=== PATIENT | female | born 1950 | race Caucasian/White ===

== ENCOUNTER 2025-02-15 18:32 | Emergency (ER) | payer MEDICAID, SELFPAY ==
--- NOTE | 2025-02-15 18:43 | XR_ITS ---
Examination: Left ankle 2 views TECHNIQUE: AP lateral left ankle 2 views Date and time: February 15, 2025 1902 hours INDICATIONS: Patient fell today with injury to the ankle, ankle pain. FINDINGS: Severe comminuted fractures distal tibia and distal fibula The distal tibial fracture extends to the distal articulating surface of the tibia with at least 8 mm displacement of the anterior distal tibial fragment on the lateral view The fibular shaft fracture is angulated and displaced one shaft width IMPRESSION: Severely comminuted fractures distal tibia and fibula
--- NOTE | 2025-02-15 18:43 | XR_ITS ---
Examination: Foot, left 3 views Technique: AP, oblique, lateral views foot, 3 views Date and time of exam: February 15, 2025 1900 hours INDICATIONS: Patient fell today with injury to foot, foot pain. FINDINGS: Nonstandard views, secondary to the ankle fractures Tarsal bones metatarsals and digits appear intact IMPRESSION: Limited study, no acute foot fractures, please see the ankle report
[2025-02-15 18:50] VITALS: PULSE 92; RESP 20; O2SAT 95
[2025-02-15 18:54] VITALS: BMI 41.6
[2025-02-15 18:56] VITALS: BP 147/48; PULSE 95; RESP 14; TEMP 36.9
--- NOTE | 2025-02-15 19:07 | EDNOTE_ITS ---
ED Fall Injury RME/HPI General Chief Complaint: Fall Stated Complaint: FALL Time Seen by Provider: 02/15/25 18:43 Arrival date/time: 02/15/25 18:32 Limitations: no limitations RME / HPI RME / HPI Narrative: 74-year-old female with a history of dementia, hyperlipidemia and hypertension is here today with injuries associated to her falls. She states she had a ground-level, mechanical fall, this morning and struck her left forehead. She denies any loss conscious, nausea, or vomiting. No vision changes. No neck pain. Just prior to arrival, she had a secondary fall and twisted her left ankle. This happened at approximately 6:00 p.m. She is brought in by EMS for this as she was nonweightbearing. Patient foot is angulated to the left. She has no open injury. Related Data Home Medications ?Medication ?Instructions ?Recorded ?Confirmed lisinopril 40 mg tablet 20 mg PO QDAY High Blood Pre ssure 02/08/10 03/30/24 ##0 oxycodone 80 mg tablet,crush 20 mg PO QID ##0 08/11/14 03/30/24 resistant,extended release 12 hr (OxyContin) Held on 03/30/24. Instructions: Resume on 03/31/24. docusate sodium 100 mg tablet 100 mg PO QDAY PRN Const ipation 03/09/21 03/30/24 donepezil 10 mg tablet 10 mg PO QDAY 03/09/2103/30 famotidine 20 mg tablet 20 mg PO QDAY 03/09/2103/30 furosemide 20 mg tablet 20 mg PO EVERYOTHERDAY 03/0903/30/24 memantine 10 mg tablet 10 mg PO BID 03/09/21 morphine 15 mg tablet,extended 15 mg PO HS 03/09/21 release Held on 03/30/24. Instructions: Resume on 03/31/24. Allergies Allergy/AdvReac Type Severity Reaction Status Date / Time Penicillins Allergy Severe Anaphylaxis Verified 02/15/25 18:55 codeine AdvReac Severe Itching Verified 02/15/25 18:55 Review of Systems Review of Systems Systems Reviewed: All systems reviewed, normal except as documented ED Exam General Limitations: Present no limitations General appearance: Present alert and in no apparent distress Head Head exam: Present atraumatic and other (No scalp depression or deformity. No raccoon sign or Velarde sign) Eye Eye exam: Present normal appearance, PERRL and EOMI ENT ENT exam: Present normal exam, normal oropharynx and mucous membranes moist Neck Neck exam: Present normal inspection, full ROM and trachea midline; Absent tenderness Chest Chest inspection: Present normal inspection and symmetric chest wall rise Respiratory Respiratory exam: Present normal lung sounds bilaterally Cardiovascular Cardiovascular exam: Present regular rate, normal rhythm and normal heart sounds Abdominal Exam Abdominal exam: Present soft and normal bowel sounds Extremities Exam Extremities exam: Present normal inspection and full ROM Back Exam Back exam: Present normal inspection and full ROM Neurological Exam Neurological exam: Present alert, oriented X3 and CN II-XII intact Psychiatric Psychiatric exam: Present normal affect and normal mood Skin Skin exam: Present warm, dry, intact and normal color Course Course Course Narrative: At approximately 1900, Dr Acuna with orthopedics was contacted and case was discussed. Dr Acuna will see the patient in the ER. We will have a Doppler, suture cart, and lidocaine at bedside for Dr Acuna. Patient was seen at bedside by orthopedics, close reduction was performed, audible posterior tibial pulse was obtained using a Doppler, and repeat films we re obtained. Dr. Combs at [facility] in [place], [place] with podiatry was contacted. Case were discussed. Patient was presented with options and would like to be transferred to their facility where they can provide definitive treatment. Dr. Combs will except, we will have to perform a ED to ED transfer. Quality Measures none Orders Category Date Time Status Jc [Urinary Catheter] QS Care 02/15/25 20:17 Active Jc to Leg Bag Routine Care 02/15/25 19:58 Ordered Transfer to another facility [Transfer/Discharge] Stat Discharge 02/15/25 19:59 Active XR ankle LT 2V Stat Exams 02/15/25 18:43 Completed XR ankle comp LT min 3V Stat Exams 02/15/25 19:35 Completed XR foot comp LT min 3V Stat Exams 02/15/25 18:43 Completed XR knee LT 3V Stat Exams 02/15/25 19:35 Completed CBC Stat Lab 02/15/25 20:48 Completed CMP [Comprehensive Metabolic Panel] Stat Lab 02/15/25 20:48 Completed Lidocaine 1% 20 ml [Xylocaine 1% 20 ML] Med 02/15/25 19:11 Discontinued 30 ml INFL X1 ONE Morphine Inj Med 02/15/25 18:43 Discontinued 4 mg IVP X1 ONE Vital Signs Vital signs: Vital Signs Temperature 98.4 F 02/15/25 18:56 Pulse Rate 95 02/15/25 18:56 Respiratory Rate 14 02/15/25 18:56 Blood Pressure 147/48 H 02/15/25 18:56 Oxygen Delivery Method Room Air 02/15/25 18:56 Fall MDM Narrative MDM Narrative:: 74-year-old female with a history of dementia, hyperlipidemia and hypertension is here today with injuries associated to her falls. She states she had a ground-level, mechanical fall, this morning and struck her left forehead. She denies any loss conscious, nausea, or vomiting. No vision changes. No neck pain. Just prior to arrival, she had a secondary fall and twisted her left ankle. This happened at approximately 6:00 p.m. She is brought in by EMS for this as she was nonweightbearing. Patient foot is angulated to the left. She has no open injury. On exam, patient was in moderate distress. She had angulation of the left foot. There were no open wounds. No palpable pulses were appreciated, capillary refill was brisk and the toes were slightly cool when compared to the left. Patient had +2 pulses in the right foot. Orthopedics was contacted, reduction was performed and audible pulses were appreciated using the Doppler. Splint was placed by orthopedics. We will transfer the patient to higher level care. Patient data External records reviewed:: EMS form Clinical information provided by:: patient and EMS Social determinants that could affect healthcare access:: none Patient has the following chronic illnesses:: Hypertension, hyperlipidemia How is presenting disease/condition affected by chronic disease/condition?: un effected by Evaluation data The following diagnostics were reviewed and interpreted by me:: lab results and radiology exam(s) Lab and/or radiology exams considered but not ordered:: n/a Interpretation Summary: Comminuted distal tibial and fibula fractures Medications / Prescriptions Medications or Prescriptions considered but not ordered:: n/a Medication administrations:: Medication Administration History Discontinued Medications Lidocaine HCl (Lidocaine Hcl 1% 20 Ml Vial) 30 ml INFL X1 ONE Stop: 02/15/25 19:12 Last Admin: 02/15/25 19:17 Dose: 30 ml Documented By: LEBRON Comments: MEDICATION GIVEN TO RAMIRO LANDRY Morphine Sulfate (Morphine Sulf Inj 10 Mg/Ml Vial) 4 mg IVP X1 ONE Stop: 02/15/25 18:44 Last Admin: 02/15/25 19:17 Dose: 4 mg Documented By: LEBRON See above Consultations Consultation(s) initiated? (list below): Yes Diagnosis Fall Differential Diagnosis: fracture of wrist, compression fracture and concussion with loss of consciousness Most likely diagnosis given after review of the tests above:: Coming fractures of the distal tibia and fibula Admission Indicated Admission indicated?: indicated Admission Request Was there a request for admission?: Yes Admission Attestation Admission request attestation: Discussed case with [] from Hospitalist service regarding admission. Discussed patients ED course, exam findings, labs, and radiology results. The Hospitalist [agrees,declines] to accept the patient for admission. Disposition Plan Disposition Plan: Transfer Discharge Plan Plan Patient Disposition: [facility] Facility Pt Being Transferred to: [facility] Service Needed for Transfer: Podiatry Patient condition on transfer: Stable Prescriptions/Referrals Prescriptions/Med Rec: No Action lisinopril 40 MG tablet 20 mg PO QDAY Qty: 0 oxycodone [OxyContin] 80 MG tablet extended release 12hr 20 mg PO QID Qty: 0 famotidine 20 mg tablet 20 mg PO QDAY morphine 15 mg tablet extended release 15 mg PO HS Patient Comments: TAKE ONE TABLET BY MOUTH EVERY DAY AT BED TIME docusate sodium 100 mg Tablet 100 mg PO QDAY PRN (Reason: Constipation) memantine 10 mg Tablet 10 mg PO BID donepezil 10 mg Tablet 10 mg PO QDAY furosemide 20 mg Tablet 20 mg PO EVERYOTHERDAY Problem List Clinical Impression: Ankle fracture, left, Closed fracture of tibial plafond with fibula involvement Patient/Caregiver Discharge Instructions Print Language: Northern Irish Stand Alone Forms: [employer] Award Info., Patient Portal Info Letter
[2025-02-15] MEDS: MORPHINE SULF INJ 10 MG/ML VIAL 4 MG IVP ×2 (19:17→23:44)
[2025-02-15] MEDS: LIDOCAINE HCL 1% 20 ML VIAL 30 ML INFL (19:17)
--- NOTE | 2025-02-15 19:35 | XR_ITS ---
Examination: Knee, left , 3 views Technique: Knee AP, lateral, oblique 3 views Date and time of exam: February 15, 2025 1954 hours INDICATIONS: Patient fell today with injury to the knee, knee pain. FINDINGS: Total left knee arthroplasty. Satisfactory alignment. No acute fracture IMPRESSION: No acute fracture
--- NOTE | 2025-02-15 19:35 | XR_ITS ---
EXAMINATION: Ankle, left 3 views Technique: Ankle AP, oblique, lateral 3 views Date and time of exam: February 15, 2025 195 hours INDICATIONS: Postreduction ankle fractures FINDINGS: No significant change in alignment severely comminuted fractures distal tibia and distal fibular shaft, in particular on the lateral view there is the displaced anterior intra-articular fracture fragment off the distal tibia No ankle dislocation IMPRESSION: No significant change in alignment severely comminuted fractures distal tibia and distal fibula
--- NOTE | 2025-02-15 19:47 | PC.NURSE ---
DR. THOMAS AT BEDSIDE APPLYING SPLINT.
--- NOTE | 2025-02-15 20:12 | PD.ORTHCON ---
HPI Consult details Reason for consultation narrative: Pain left ankle History of present illness: Patient is a 74-year-old who was walking and felt a sudden pop in her left ankle. She does not describe a twist she does not describe a fall other than an earlier in the day she fell hit her head on the mailbox. She was not complaining of any extremity pain at that time according to the patient. Pain localized just to distal left leg left ankle Past Medical History Past Medical History NEUROLOGIC: Negative Neurological Disorders or Seizures CARDIAC: Positive Cardiac Disorders, Hypercholesterolemia and Hypertension; Negative Congestive Heart Failure RESPIRATORY: Positive Chronic Obstructive Pulmonary Disease (COPD); Negative Asthma GASTROINTESTINAL: Positive Gastrointestinal Disorders, Hepatitis and Gastroesophageal Reflux Disease GENITOURINARY: Negative Genitourinary Disorders or Renal Disease REPRODUCTIVE: Negative Pelvic Inflammatory Disease MUSCULOSKELETAL: Positive Musculoskeletal Disorders, Arthritis and Fractures ENDOCRINE: Negative Endocrine Disorders, Diabetes Mellitus Type 1 or Diabetes Mellitus Type 2 HEMATOLOGIC: Negative Blood Disorders or Sickle Cell Disease PSYCHO/SOCIAL: Positive Depression OTHER HISTORY: Positive Chicken Pox, Measles, Mumps and Cervical Cancer; Negative Blood Transfusions, Blood Transfusion Reaction, Anesthesia Reactions, MRSA, VRSA, Vancomycin-Resistant Enterococci, Clostridium Difficile or Cancer Family History FAMILY HISTORY: Positive Family Cardiac Disorders and Family Cancer (PT'S DAD) Surgical History SURGICAL: Positive Joint Replacement and Tubal Ligation (TUBAL - 1 TUBE REMOVED) Social History SMOKING STATUS: Former smoker SECOND HAND EXPOSURE: No Meds Home Medications and Allergies Home Medications ?Medication ?Instructions ?Recorded ?Confirmed ?Type lisinopril 40 mg tablet 20 mg PO QDAY High Blood Pressure 02/08/10 03/30/24 History ##0 oxycodone 80 mg tablet,crush 20 mg PO QID ##0 08/11/14 03/30/24 History resistant,extended release 12 hr (OxyContin) Held on 03/30/24. Instructions: Resume on 03/31/24. docusate sodium 100 mg tablet 100 mg PO QDAY PRN Constipation 03/09/21 03/30/24 History donepezil 10 mg tablet 10 mg PO QDAY 03/09/21 03/30/24 History famotidine 20 mg tablet 20 mg PO QDAY 03/09/21 03/30/24 History furosemide 20 mg tablet 20 mg PO EVERYOTHERDAY 03/09/21 03/30/24 History memantine 10 mg tablet 10 mg PO BID 03/09/21 03/30/24 History morphine 15 mg tablet,extended 15 mg PO HS 03/09/21 03/30/24 History release Held on 03/30/24. Instructions: Resume on 03/31/24. Allergies Allergy/AdvReac Type Severity Reaction Status Date / Time Penicillins Allergy Severe Anaphylaxis Verified 02/15/25 18:55 codeine AdvReac Severe Itching Verified 02/15/25 18:55 Exam Vital Signs Temp Pulse Resp BP O2 Del Method 98.4 F 95 14 147/48 H Room Air 02/15/25 18:56 02/15/25 18:56 02/15/25 18:56 02/15/25 18:56 02/15/25 18:56 Blood pressure 147/48, pulse 95 Narrative Exam Patient is alert oriented very nice lady who is complaining of pain in the left leg left ankle. No other complaints. Turns head [id number] moves shoulders elbows wrist hands and fingers No complaint of any pain chest abdomen Patient examination of the left lower extremity shows that she is short and angulated. Able to flex and extend toes. Does have some degree of numbness but not extreme. Interestingly not a lot of swelling at this point in time. Unable to get pulse with Doppler. Some of it is due to the fact that the patient is very uncomfortable. The ankle was manipulated and a good posterior tibial pulse was palpable and she had good active flexion extension of her toes felt much better after manipulation Assessment & Plan Additional Assessment Additional comments: Patient was seen. Obvious deformity left leg. Hematoma block carried out close manipulation was then done and a posterior molded splint with stirrup applied. Better alignment. She does have a very significant distal tibia and fibular fracture plafond type fortunately the talus is under the tibia Plan Very complex injury. Needs tertiary care setting. It is going to be very difficult operation. Fortunately right now she does not have any significant swelling
--- NOTE | 2025-02-15 20:18 | ESOP_ITS ---
Pre Op Diagnosis Angulated displaced distal left tibia fracture and fibular fracture with intra- articular component being present tibia representing a plafond type of fracture Post Op Diagnosis Same Procedure Close manipulation distal tibia and fibular fracture left lower extremity plafond type Findings Distal tibia fracture with extension into ankle joint plafond type with significant comminution. Injury is closed Distal fibular fracture with angulation and shortening left lower extremity. Comminuted and closed Procedure Description Patient was seen in the emergency room. Initially we could not get pulses. I did a hematoma block with 3 cc fibula 7 cc distal tibia using 22-gauge needle hematoma aspirated and injected. Much more comfortable. Fracture manipulated and a posterior molded splint with side stirrup applied. After the manipulation and before application of splint she had a good posterior tibial pulse and felt much more comfortable Anesthesia other Drains None Implants None Pathology / specimen Pathology comment: None IVF Infused 0 Estimated Blood Loss 0 Condition Stable Disposition other (She needs transfer to tertiary center complex intra-articular distal tibia fracture plafond type and fibula fracture) Surgeon Renato Acuna MD Additional Comment Transfer higher level of care
[2025-02-15 21:09] VITALS: BP 154/55; PULSE 70; RESP 17; TEMP 36.8; O2SAT 95
[2025-02-15 21:30] LABS: Basophils # (Auto) 0.0 Thou/mm3 (0.0-0.2); Basophils % (Auto) 0 % (0-2.5); Eosinophils # (Auto) 0.0 Thou/mm3 (0.0-0.5); Eosinophils % (Auto) 0 % (0-10); Hematocrit 42.2 % (36.0-46.0); Hemoglobin 13.6 g/dL (12.0-16.0); Immature Granulocytes Auto 0.03 Thou/mm3 (0.00-0.00); Lymphocytes # (Auto) 1.5 Thou/mm3 (1.0-4.8); Lymphocytes % (Auto) 13 % (10-50); Mean Corpuscular HGB Conc 32.2 g/dl (31.0-37.0); Mean Corpuscular Hemoglobin 29.2 pg (25.0-35.0); Mean Corpuscular Volume 91 fL (80-100); Monocytes # (Auto) 0.9 Thou/mm3 (0.0-0.8); Monocytes % (Auto) 7 % (0-12); Neutrophils # (Auto) 9.2 Thou/mm3 (1.8-7.7); Neutrophils % (Auto) 79 % (37-80); Nucleated Red Blood Cell # 0.00 Thou/mm3 (0.00-0.00); Nucleated Red Blood Cell % 0 /100 WBC (0); Platelet Count 181 Thou/mm3 (140-440); RDW Standard Deviation 44.1 fL (36.4-46.3); Red Blood Count 4.66 Miln/mm3 (4.00-5.20); White Blood Count 11.6 Thou/mm3 (3.6-11.0)
[2025-02-15 21:48] LABS: Alanine Aminotransferase 32 U/L (10-49); Albumin, Serum 4.3 gm/dL (3.4-4.8); Albumin/Globulin Ratio 1.7 (1.2-2.2); Alkaline Phosphatase 62 U/L (46-116); Anion Gap 12 (7-16); Aspartate Amino Transferase 50 U/L (0-34); BUN/Creatinine Ratio 13 Ratio (12-20); Bilirubin,Total 0.4 mg/dL (0.3-1.2); Blood Urea Nitrogen 37 mg/dL (9-23); Calcium 9.8 mg/dL (8.3-10.6); Calcium (Corrected) 9.8 mg/dL (8.5-10.1); Carbon Dioxide 21.9 mMol/L (20.0-31.0); Chloride 108 mMol/L (98-107); Creatinine (Component) 2.8 mg/dL (0.6-1.3); Estimated Creatinine Clearance 24.4 mL/min (>60); Globulin 2.6 gm/dL (2.3-3.5); Glucose 112 mg/dL (74-106); Osmolality,Calculated 292 (275-295); Potassium 5.4 mMol/L (3.4-5.1); Sodium 142 mMol/L (136-145); Total Protein 6.9 gm/dL (5.7-8.2); eGFR 17 See Note
--- NOTE | 2025-02-15 22:26 | PC.NURSE ---
2223, ACCEPTED TO [facility] , ER TO ER, REPORT #[id number], SPOKE TO SINTIA
[2025-02-15 23:23] VITALS: BP 102/53; PULSE 82; RESP 17; TEMP 37.1; O2SAT 95
--- NOTE | 2025-02-15 23:32 | PC.NURSE ---
REPORT GIVEN TO JOHNNY WYATT AT [facility] AND BEDSIDE REPORT GIVEN TO EMS.
[2025-02-15 23:34] VITALS: BP 171/71
== END 2025-02-15 23:54 | disposition short-term general hospital (02) ==
PROVIDERS: Physician Assistant Medical; Emergency Provider Emergency Medicine; PCP Family Medicine
DX: S82.832A Other fracture of upper and lower end of left fibula, initial encounter for closed fracture (principal); W18.30XA Fall on same level, unspecified, initial encounter; E78.5 Hyperlipidemia, unspecified; F03.90 Unspecified dementia, unspecified severity, without behavioral disturbance, psychotic disturbance, mood disturbance, and anxiety; I10 Essential (primary) hypertension; S89.92XA Unspecified injury of left lower leg, initial encounter
CPT/HCPCS: 27788; 51702; 36415; 73562; 73600; 73610; 73630; 80053; 85025; 96374; 96376; 99285; A4314; J2270; J3490